=== PATIENT | male | born 1995 | race Caucasian/White ===

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

== ENCOUNTER 2017-08-06 12:35 | Emergency (ER) | payer OTHER ==
[~2017-08-06] VITALS: Ht 170.2 cm; Wt 69.2 kg
[2017-08-06 12:46] VITALS: BP 123/79
--- NOTE | 2017-08-06 12:46 | NUR ---
PATIENT PRESENTS TO ED WITH C/O VALDEZ TO right parietal c/o stabbing pain; denies N/V . PT STATES HE HAS BEEN HAVING ON AND OFF HEADACHE FOR A MONTH . PATIENT DENIES ANY TRAUMA TO THE SITE. DENIES N/V/D; SKIN IS PINK/WARM/DRY; AAOX4 WITH EVEN AND STEADY GAIT; LUNGS CLEAR BL; HR EVEN AND REGULAR; PT DENIES ANY FEVER, CP, SOB, OR COUGH AT THIS TIME; PATIENT STATES PAIN OF 8/10 AT THIS TIME; VSS; PATIENT POSITIONED FOR COMFORT; HOB ELEVATED; BEDRAILS UP X2; BED DOWN. ER MD MADE AWARE OF PT STATUS.
[2017-08-06 14:38] VITALS: BP 125/74
--- NOTE | 2017-08-06 14:39 | NUR ---
Patient discharged with v/s stable. Written and verbal after care instructions given and explained. Patient alert, oriented and verbalized understanding of instructions. Ambulatory with steady gait. All questions addressed prior to discharge. ID band removed. Patient advised to follow up with PMD. Rx of FIORICET given. Patient educated on indication of medication including possible reaction and side effects. Opportunity to ask questions provided and answered.
== END 2017-08-06 14:39 | disposition home or self-care (01) ==
LOC: MED 12:35
DX: G44.009 Cluster headache syndrome, unspecified, not intractable (principal)
CPT/HCPCS: 70450; 99284

== ENCOUNTER 2019-05-26 21:44 | Emergency (ER) | payer OTHER ==
[~2019-05-26] VITALS: Ht 170.2 cm; Wt 63.5 kg
[2019-05-26 21:45] VITALS: BP 130/90
--- NOTE | 2019-05-26 21:45 | NUR ---
TO BED # 08 AMBULATORY
--- NOTE | 2019-05-26 21:45 | NUR ---
24 Y/O MALE C/O OF GEN WEAKNESS, FOR 3 DAYS, NAUSEA BUT DENIES VOMITING. PAIN IS A 0/10 AT THIS TIME. A/OX4 GCS: 15; FOLLOWS COMMANDS; BREATHING UNLABORED AND SYMMETRICAL. NO NAUSEA AT THIS TIME. LAST BM WAS TODAY; NORMAL. PATIENT IS ABLE TO AMBULATE TO THE ROOM WITH NO DEFICITS. ERMD MADE AWARE OF STATUS. SIDE RAILSX1. PMH: DENIES RX: DENIES NKDA
[2019-05-26 22:27] LABS: HEMATOCRIT 46.9 % (36-52); HEMOGLOBIN 15.8 g/dL (12.0-18.0); WHITE BLOOD COUNT (AUTO) 6.2 K/uL (4.8-10.8)
[2019-05-26 22:28] LABS: BASOPHILS % (AUTO) 0.9 % (0.0-2.0); EOSINOPHILS # (AUTO) 0.2 K/uL (0-0.4); EOSINOPHILS % (AUTO) 3.1 % (0.0-4.0); LYMPHOCYTES # (AUTO) 2.4 K/uL (2.0-11.5); LYMPHOCYTES % (AUTO) 39.2 % (20.5-51.1); MEAN CORPUSCULAR HEMOGLOBIN 30 pg (27-31); MEAN CORPUSCULAR HGB CONC 34 g/dL (33-37); MEAN CORPUSCULAR VOLUME 88.6 fL (80-94); MONOCYTES # (AUTO) 0.9 K/uL (0.8-1.0); MONOCYTES % (AUTO) 14.2 % (1.7-9.3); NEUTROPHILS # (AUTO) 2.6 K/uL (1.8-7.7); NEUTROPHILS % (AUTO) 42.6 % (42.2-75.2); PLATELET COUNT (AUTO) 201 K/uL (140-450)
[2019-05-26 22:29] LABS: BASOPHILS # (AUTO) 0.1 K/uL (0.00-0.22)
[2019-05-26 22:52] LABS: BARBITURATE, URINE NEGATIVE ng/ml (NEG <=200); BENZODIAZEPINE, URINE NEGATIVE ng/mL (NEG <=200); CANNABINOID, URINE NEGATIVE ng/mL (NEG <=50); COCAINE, URINE NEGATIVE ng/mL (NEG <=300); OPIATE, URINE NEGATIVE ng/mL (NEG <=2000); PHENCYCLIDINE SCREEN,URINE NEGATIVE ng/mL (NEG <=25)
[2019-05-26 22:55] LABS: CARBON DIOXIDE 29.3 mmol/L (21-32)
[2019-05-26 22:56] LABS: ALBUMIN 4.1 g/dL (3.4-5.0); FREE T4 (FREE THYROXINE) 1.06 ng/dL (0.76-1.46); THYROID STIMULATING HORMONE 3.79 uIU/mL (0.34-3.74); TOTAL BILIRUBIN 0.4 mg/dL (0.0-1.0)
[2019-05-26 23:00] LABS: ANION GAP 12.7 (8-16)
[2019-05-26 23:05] VITALS: BP 130/90
--- NOTE | 2019-05-26 23:05 | NUR ---
Patient discharged with v/s stable. Written and verbal after care instructions given and explained. Pt encouraged to avoid using caffeine including coffee. Pt encouraged to try relaxation techniques before bedtime; turn off the tv, turn off the lights and to go to bed at the same time every night. Patient alert, oriented and verbalized understanding of instructions. Ambulatory with steady gait. All questions addressed prior to discharge. ID band removed. Patient advised to follow up with PMD in 2-3 days. Patient educated on indication of medication including possible reaction and side effects. Opportunity to ask questions provided and answered.
== END 2019-05-26 23:05 | disposition home or self-care (01) ==
LOC: MED 21:44
DX: G47.00 Insomnia, unspecified (principal); F12.10 Cannabis abuse, uncomplicated; F39 Unspecified mood [affective] disorder; Z72.0 Tobacco use
CPT/HCPCS: 36415; 80053; 80305; 84439; 84443; 85025; 99283

== ENCOUNTER 2019-10-19 18:42 | Emergency (ER) | payer OTHER ==
[~2019-10-19] VITALS: Ht 172.7 cm; Wt 59.0 kg
[2019-10-19 18:55] VITALS: BP 127/82
--- NOTE | 2019-10-19 19:04 | NUR ---
TRIAGED. WAIT AT TENT.
--- NOTE | 2019-10-19 19:20 | NUR ---
PATIENT LEFT WITHOUT BEING SEEN BY DR. WOLF. NO FURTHER CARE PROVIDED FOR PATIENT. Addendum: 10/19/[address] [facility] PATIENT LEFT WITHOUT BEING SEEN BY DR. WELLS. NO FURTHER CARE PROVIDED FOR PATIENT.
== END 2019-10-19 19:20 | disposition left against medical advice (07) ==
LOC: MED 18:42
DX: R05 Cough (principal); R50.9 Fever, unspecified; Z53.21 Procedure and treatment not carried out due to patient leaving prior to being seen by health care provider